=== PATIENT | female | born 1980 | race Caucasian/White ===

== ENCOUNTER 2018-12-21 16:22 | Observation (INO) | payer MEDICAID ==
[~2018-12-21] VITALS: Ht 160 cm; Wt 79.4 kg
[2018-12-21 17:53] LABS: BASOPHILS % 0.7 % (0.0-2.0); EOSINOPHILS % 1.4 % (0.0-5.0); HEMATOCRIT. 36.8 % (36.0-48.0); HEMOGLOBIN. 12.2 g/dL (12.0-16.0); LYMPHOCYTES % 18.4 % (20.0-50.0); MEAN CORPUSCULAR VOLUME 93.5 fL (81.0-99.0); MEAN PLATELET VOLUME 9.2 fl (7.4-10.4); MONOCYTES % 9.8 % (2.0-8.0); NEUTROPHILS % 69.7 % (40.0-76.0); PLATELET 192 x1000/uL (130-400); RED BLOOD CELL COUNT 3.94 mill/uL (4.2-5.4); RED CELL DISTRIBUTION WIDTH 14.2 % (11.6-14.6)
[2018-12-21 17:59] LABS: CHLORIDE 105 mEq/L (98-107)
[2018-12-21 17:59] LABS: CLARITY URINE CLOUDY (CLEAR); COLOR URINE YELLOW (YELLOW); KETONES URINE NEGATIVE (NEGATIVE); LEUKOCYTE ESTERASE URINE 2+ (NEGATIVE); NITRITE URINE POSITIVE (NEGATIVE); OCCULT BLOOD URINE NEGATIVE (NEGATIVE); PROTEIN URINE TRACE (NEGATIVE); SPECIFIC GRAVITY URINE 1.021 (1.005-1.030); UROBILINOGEN URINE 0.2 E.U./dL (0.2-1.0)
[2018-12-21 18:06] LABS: INR 0.9; PARTIAL THROMBOPLASTIN TIME 27.1 sec (23.4-31.0)
[2018-12-21] MEDS ORDERED: PNV1TABL50 PO (20:50)
[2018-12-21] MEDS ORDERED: FERR-71 PO (20:50)
[2018-12-21] MEDS ORDERED: ASPI-1160 PO (20:50)
== END 2018-12-21 21:00 | disposition home or self-care (01) ==
LOC: 8 EST LDRP 16:22 → 8 EST A/PP 17:00
PROVIDERS: ADMIT Obstetrics & Gynecology; ATTEND Obstetrics & Gynecology
DX: O13.9 Gestational [pregnancy-induced] hypertension without significant proteinuria, unspecified trimester (principal); Z3A.33 33 weeks gestation of pregnancy
CPT/HCPCS: 36415; 80053; 81003; 84550; 85025; 85384; 85610; 85730; G0378